=== PATIENT | female | born 1975 | race Caucasian/White ===

== ENCOUNTER 2017-06-03 18:15 | Emergency (ER) | payer BC ==
[2017-06-03 18:43] VITALS: BP 128/59
--- NOTE | 2017-06-03 18:54 | UC ---
Throat Pain/Nasal Samuel HPI - HPI Summary HPI Summary: 41 YEAR OLD MALE PRESENTS WITH COUGH, CHEST CONGESTION AND RUNNY NOSE - History of Current Complaint Chief Complaint: UCGeneralIllness Stated Complaint: COUGH,RUNNY NOSE Time Seen by Provider: 06/03/17 18:54 Hx Obtained From: Patient Hx Last Menstrual Period: 04/2017 Onset/Duration: Sudden Onset Pain Scale Used: 0-10 Numeric - 6 Cough: Nonproductive Associated Signs & Symptoms: Positive: Wheezing - Allergies/Home Medications Allergies/Adverse Reactions: Allergies Allergy/AdvReac Type Severity Reaction Status Date / Time Penicillins Allergy Difficulty Verified 06/03/17 18:43 Breathing PMH/Surg Hx/FS Hx/Imm Hx Previously Healthy: Yes - Surgical History Surgical History: Yes Surgery Procedure, Year, and Place: . partial hyst. 09/2016 - Family History Known Family History: Positive: Hypertension - Social History Alcohol Use: None Substance Use Type: None Smoking Status (MU): Never Smoked Tobacco - Immunization History Most Recent Influenza Vaccination: none Review of Systems Constitutional: Negative Skin: Negative Eyes: Negative ENT: Sore Throat, Nasal Discharge, Sinus Congestion, Sinus Pain/Tenderness Respiratory: Cough Cardiovascular: Negative Gastrointestinal: Negative Genitourinary: Negative Motor: Negative Neurovascular: Negative Musculoskeletal: Negative Neurological: Negative Psychological: Negative All Other Systems Reviewed And Are Negative: Yes Physical Exam Triage Information Reviewed: Yes Vital Signs: Initial Vital Signs Temp 37.6 C 06/03/17 18:39 Pulse 102 06/03/17 18:39 Resp 17 06/03/17 18:39 BP 128/59 06/03/17 18:39 Pulse Ox 97 06/03/17 18:39 Eye Exam: Normal ENT Exam: Normal Dental Exam: Normal Neck exam: Normal Neck: Positive: 1 Respiratory: Positive: Rhonchi, Wheezing Cardiovascular Exam: Normal Abdominal Exam: Normal Musculoskeletal Exam: Normal Neurological Exam: Normal Psychological Exam: Normal Skin Exam: Normal Throat Pain/Nasal Course/Dx - Differential Dx/Diagnosis Provider Diagnoses: BRONCHITIS. POST NASAL DRIP Discharge - Discharge Plan Condition: Stable Disposition: HOME Prescriptions: Azithromycin TAB* [Zithromax TAB (Z-FERNANDO) 250 mg #6 tabs] 2 tab PO .TODAY, THEN 1 DAILY #1 fernando Benzonatate [TESSALON 200 MG CAP] 200 mg PO TID PRN #30 cap PRN Reason: Cough LoraTADine TAB(NF) [Claritin 10 MG TAB(NF)] 10 mg PO DAILY #30 tab guaiFENesin/CODIEN 100MG-10MG* [Robitussin AC 100Mg-10Mg*] 5 ml PO Q8H PRN #120 udc MDD 15 ml PRN Reason: Cough Patient Education Materials: Acute Cough (ED), Wheezing (ED) Referrals: Rocio Carlton MD [Primary Care Provider] -
== END 2017-06-03 19:12 | disposition home or self-care (01) ==
LOC: UCCORT 18:15
DX: J40 Bronchitis, not specified as acute or chronic (principal); R09.82 Postnasal drip; Z90.711 Acquired absence of uterus with remaining cervical stump; Z88.0 Allergy status to penicillin
CPT/HCPCS: 99212; G0463